=== PATIENT | female | born 1940 | race Caucasian/White ===

== ENCOUNTER 2021-03-14 20:11 | Emergency (ER) | payer MEDICARE ==
[2021-03-14 21:07] LABS: BASOPHIL 0.6 % (0-2); EOSINOPHIL 3.1 % (0-7); HCT 40.3 % (37.0-47.0); HGB 13.1 g/dl (12.5-16.0); LYMPHOCYTE 19.9 % (15-48); MCH 27.7 pg (25.0-31.0); MCHC 32.5 g/dL (32.0-36.0); MCV 85.2 fL (78.0-100.0); MPV 10.1 fL (6.0-9.5); NEUTROPHIL 66.8 % (41-80); NRBC 0; PLT 352 K/uL (150-400); RBC 4.73 M/uL (4.20-5.40); RDW 13.6 % (11.5-14.0); WBC 8.7 K/uL (4.0-10.5)
[2021-03-14 21:17] LABS: ALBUMIN 3.8 g/dL (3.4-5.0); BILIRUBIN - TOTAL 0.5 mg/dL (0.2-1.0); BUN/CREAT RATIO (CALC) 17.4 RATIO; CREATININE 0.92 mg/dL (0.51-0.95); GLOBULIN (CALCULATION) 3.8 g/dL; POTASSIUM 4.4 mmol/L (3.5-5.1); TOTAL PROTEIN 7.6 g/dL (6.4-8.2)
[2021-03-14 21:32] LABS: BILIRUBIN NEGATIVE (NEGATIVE); BLOOD NEGATIVE Ery/uL (NEGATIVE); CLARITY CLEAR (CLEAR); COLOR YELLOW (YELLOW); GLUCOSE (U) NORMAL (NORMAL); LEUKOCYTES NEGATIVE Leu/uL (NEGATIVE); NITRITE NEGATIVE (NEGATIVE); PROTEIN NEGATIVE (NEGATIVE); UROBILINOGEN 0.2 mg/dL (0.2-1.0)
[2021-03-14] MEDS ORDERED: LISINOPRIL-HCT1 EAC1 PO (22:20)
== END 2021-03-14 23:40 | disposition home or self-care (01) ==
LOC: FER 20:11
PROVIDERS: Emergency Medicine Emergency Medical Services
DX: I10 Essential (primary) hypertension (principal)
CPT/HCPCS: 36415; 71045; 80053; 81003; 84484; 85025; 93005

== ENCOUNTER 2021-03-31 07:34 | Emergency (ER) | payer MEDICARE ==
[~2021-03-31 07:34] MED LIST: LISINOPRIL-HCT1 EAC1 PO
[2021-03-31 08:30] LABS: BASOPHIL 0.6 % (0-2); EOSINOPHIL 0.9 % (0-7); HCT 39.4 % (37.0-47.0); HGB 12.9 g/dl (12.5-16.0); MCH 27.8 pg (25.0-31.0); MCHC 32.7 g/dL (32.0-36.0); MCV 84.9 fL (78.0-100.0); MONOCYTE 8.8 % (0-12); MPV 9.5 fL (6.0-9.5); NEUTROPHIL 70.1 % (41-80); NRBC 0; PLT 368 K/uL (150-400); RBC 4.64 M/uL (4.20-5.40); RDW 13.6 % (11.5-14.0); WBC 6.5 K/uL (4.0-10.5)
[2021-03-31 08:50] LABS: ALBUMIN 3.7 g/dL (3.4-5.0); BILIRUBIN - TOTAL 0.4 mg/dL (0.2-1.0); CREATININE 0.75 mg/dL (0.51-0.95); GLOBULIN (CALCULATION) 4.2 g/dL; POTASSIUM 3.7 mmol/L (3.5-5.1); TOTAL PROTEIN 7.9 g/dL (6.4-8.2)
[2021-03-31 08:53] LABS: IRON % SATURATION 10.3 %SAT (20-50)
[2021-03-31 08:59] LABS: PRO-BNP 367 pg/mL (<450)
[2021-03-31] MEDS ORDERED: LASIX20 MG PO (10:59)
[2021-03-31] MEDS ORDERED: ALDACTONE25 MG PO (10:59)
[2021-03-31] MEDS ORDERED: K-TAB ER10 MEQ PO (11:02)
== END 2021-03-31 11:35 | disposition home or self-care (01) ==
LOC: FER 07:34
PROVIDERS: Emergency Medicine
DX: I11.0 Hypertensive heart disease with heart failure (principal); I50.1 Left ventricular failure, unspecified
CPT/HCPCS: 36415; 71046; 80053; 83540; 83550; 83735; 83880; 84484; 85025; 93005; J1940

== ENCOUNTER 2021-04-05 07:33 | Emergency (ER) | payer MEDICARE ==
[~2021-04-05 07:33] MED LIST changes: +ALDACTONE25 MG PO; +K-TAB ER10 MEQ PO; +LASIX20 MG PO
[2021-04-05 08:23] LABS: BASOPHIL 0.7 % (0-2); HCT 39.7 % (37.0-47.0); HGB 12.9 g/dl (12.5-16.0); LYMPHOCYTE 21.9 % (15-48); MCHC 32.5 g/dL (32.0-36.0); MCV 86.1 fL (78.0-100.0); MONOCYTE 9.4 % (0-12); MPV 9.7 fL (6.0-9.5); NEUTROPHIL 64.3 % (41-80); NRBC 0; PLT 332 K/uL (150-400); RBC 4.61 M/uL (4.20-5.40); RDW 13.9 % (11.5-14.0); WBC 5.7 K/uL (4.0-10.5)
[2021-04-05 08:31] LABS: BILIRUBIN NEGATIVE (NEGATIVE); BLOOD NEGATIVE Ery/uL (NEGATIVE); CLARITY CLEAR (CLEAR); COLOR YELLOW (YELLOW); GLUCOSE (U) NORMAL (NORMAL); LEUKOCYTES TRACE Leu/uL (NEGATIVE); NITRITE NEGATIVE (NEGATIVE); PROTEIN NEGATIVE (NEGATIVE); UROBILINOGEN 0.2 mg/dL (0.2-1.0)
[2021-04-05 08:44] LABS: BACTERIA TRACE; URINARY RBC RARE; URINARY WBC RARE
[2021-04-05 08:47] LABS: ALBUMIN 3.6 g/dL (3.4-5.0); BILIRUBIN - TOTAL 0.4 mg/dL (0.2-1.0); BUN/CREAT RATIO (CALC) 12.3 RATIO; CREATININE 0.81 mg/dL (0.51-0.95); POTASSIUM 4.2 mmol/L (3.5-5.1); TOTAL PROTEIN 7.6 g/dL (6.4-8.2)
[2021-04-05 08:49] LABS: PRO-BNP 237 pg/mL (<450)
== END 2021-04-05 11:15 | disposition home or self-care (01) ==
LOC: FER 07:33
PROVIDERS: Emergency Medicine
DX: R06.02 Shortness of breath (principal); I10 Essential (primary) hypertension; Z20.822 Contact with and (suspected) exposure to COVID-19; Z79.899 Other long term (current) drug therapy
CPT/HCPCS: 36415; 71045; 71275; 80053; 81001; 83540; 83605; 83735; 83880; 84145; 84443; 84484; 85025; 93005; J1940; Q9967; U0002